=== PATIENT | female | born 1940 | race Caucasian/White ===

== ENCOUNTER 2024-03-19 12:00 | Emergency (ER) | payer MEDICARE ==
[~2024-03-19] VITALS: Ht 157.5 cm; Wt 49.9 kg
[2024-03-19 13:16] LABS: Albumin, Blood 3.5 g/dL (3.4-5.0); Albumin/Globulin Ratio 1.1 (0.8-1.8); BASOPHILS ABSOLUTE AUTO 0.05 K/mm3 (0.00-0.23); BASOPHILS PERCENT AUTO 1 % (0-2); Bilirubin, Total 0.6 mg/dL (0.1-1.0); Bun/Creatinine Ratio 13.7 (12.0-20.0); Calcium, Blood 9.3 mg/dL (8.5-10.1); Creatinine, Blood 0.73 mg/dL (0.40-1.00); EOSINOPHILS ABSOLUTE AUTO 0.05 K/mm3 (0.00-0.68); EOSINOPHILS PERCENT AUTO 1 % (0-6); Globulin, Blood 3.3 g/dL (2.2-4.0); Hematocrit 38.4 % (33.0-51.0); Hemoglobin 12.3 g/dL (11.5-16.0); IMMATURE GRAN ABSOLUTE AUTO 0.06 K/mm3 (0.00-0.10); IMMATURE GRAN PERCENT AUTO 1 % (0-1); LYMPHOCYTES ABSOLUTE AUTO 1.47 K/mm3 (0.84-5.20); LYMPHOCYTES PERCENT AUTO 20 % (21-46); MONOCYTES ABSOLUTE AUTO 0.49 K/mm3 (0.16-1.47); MONOCYTES PERCENT AUTO 7 % (4-13); Magnesium, Blood 1.9 mg/dL (1.6-2.4); Mean Corpuscular HGB 25.6 pg (26.0-34.0); Mean Corpuscular Volume 80 fL (80-100); NEUTROPHILS ABSOLUTE AUTO 5.12 K/mm3 (1.96-9.15); NEUTROPHILS PERCENT AUTO 71 % (41-73); RDW Coefficient Variation 18.6 % (11.7-14.2); RDW Standard Deviation 53.8 fL (35.1-46.3); Total Protein, Blood 6.8 g/dL (6.4-8.2); White Blood Cell Count 7.24 K/mm3 (4.00-11.30)
[2024-03-19 13:38] LABS: Mean Platelet Volume 10.4 fL (9.1-12.4); Platelet Count 220 K/mm3 (150-400)
[2024-03-19] MEDS ORDERED: Morphine Sulfate 4 MG/1 ML Injection IV ONE (15:45)
[2024-03-19] MEDS ORDERED: Metoclopramide HCl 5MG / ML 2ML Vial IV ONE (17:20)
[2024-03-19] MEDS ORDERED: DiphenhydrAMINE HCl 50 MG/ML 1ML Vial IV ONE (17:20)
[2024-03-19] MEDS ORDERED: FAMO20 PO (17:45)
[2024-03-19] MEDS ORDERED: ONDA4 PO (17:45)
== END 2024-03-19 18:15 | disposition home or self-care (01) ==
LOC: ER 12:00
PROVIDERS: Physician Assistant
DX: I48.91 Unspecified atrial fibrillation (principal); R10.13 Epigastric pain; R11.2 Nausea with vomiting, unspecified; Z88.8 Allergy status to other drugs, medicaments and biological substances
CPT/HCPCS: 74177; 80053; 83605; 83690; 83735; 85025; 93005; 93010; 96374-59; 96375; 99284-25; J1200; J2765; Q9967